=== PATIENT | male | born 1965 | race Caucasian/White ===

== ENCOUNTER 2017-05-12 17:25 | Emergency (ER) | payer MEDICAID, OTHER ==
[2017-05-12] MEDS: TETRACAINE 0.5% 4 ML OPH RIGHT EYE (21:24)
[2017-05-12] MEDS: FLUORESCEIN STRIP RIGHT EYE (21:24)
[2017-05-12] MEDS: CIPROFLOXACIN 0.3% 2.5 ML OPH RIGHT EYE (21:24)
== END 2017-05-12 21:56 | disposition home or self-care (01) ==
LOC: FTE 17:25
DX: T15.91XA Foreign body on external eye, part unspecified, right eye, initial encounter (principal); X58.XXXA Exposure to other specified factors, initial encounter; Y92.9 Unspecified place or not applicable; Z87.891 Personal history of nicotine dependence
CPT/HCPCS: 99283; Z7502